=== PATIENT | female | born 1995 | race Caucasian/White ===

== ENCOUNTER 2016-12-16 18:09 | Emergency (ER) | payer OTHER ==
[~2016-12-16] VITALS: Ht 154.9 cm; Wt 66.7 kg
[~2016-12-16 18:09] MED LIST: IRON65TA3 PO; PREN-385 PO
[2016-12-16 18:42] VITALS: BP 107/60
[2016-12-16] MEDS ORDERED: ACETAMINOPHEN 650 MG/20.3 ML UDC ONE (18:56)
[2016-12-16] MEDS ORDERED: ACETAMINOPHEN 325 MG TAB ONE (18:59)
[2016-12-16] MEDS ORDERED: KETOROLAC 30 MG/ML VIAL IM ONE (20:30)
[2016-12-16 21:29] LABS: APPEARANCE,URINE CLEAR (CLEAR); BILIRUBIN,URINE NEGATIVE (NEGATIVE); BLOOD, URINE NEGATIVE (NEGATIVE); COLOR,URINE YELLOW (YELLOW); LEUKOCYTE ESTERASE ,URINE 1+ (NEGATIVE); NITRITE, URINE NEGATIVE (NEGATIVE); PH,URINE 6.5 (5.0-9.0); PROTEIN,URINE NEGATIVE (NEGATIVE); UGLUCOSE NEGATIVE (NEGATIVE); UROBILINOGEN,URINE 0.2 EU/dL (0.2 - 1)
[2016-12-16 21:33] LABS: BACTERIA,URINE 1+ /HPF (None Seen); RBC,URINE 0-3 /HPF (0-5)
[2016-12-16 21:55] VITALS: BP 110/65
== END 2016-12-16 21:55 | disposition home or self-care (01) ==
LOC: MED 18:09
DX: R51 Headache (principal); N39.0 Urinary tract infection, site not specified; J45.909 Unspecified asthma, uncomplicated
CPT/HCPCS: 81001; 81025; 87086; 99284; J1885

== ENCOUNTER 2017-05-10 18:38 | Emergency (ER) | payer OTHER ==
[~2017-05-10] VITALS: Ht 154.9 cm; Wt 64.4 kg
[~2017-05-10 18:38] MED LIST changes: +FERR-212 PO; -IRON65TA3 PO
[2017-05-10 20:05] VITALS: BP 112/75
--- NOTE | 2017-05-10 21:20 | NUR ---
21 Y/O F W/C/O RT ANKLE PAIN S/P FALLING OUT OF CAR THIS AM, STATES "I TWISTED MY ANKLE", MINIMAL EDEMA, LANDED ON LT ARM, DENIES PAIN ON LT ARM, DENIES HEAD INJURY/LOC PMH: ASTHMA, RT ANKLE FX 2 YRS AGO, RX: ALBUTEROL INH.
--- NOTE | 2017-05-10 21:34 | NUR ---
PT TAKEN FOR X-RAY.
[2017-05-10 23:09] VITALS: BP 97/60
--- NOTE | 2017-05-10 23:09 | NUR ---
Patient discharged with v/s stable. Written and verbal after care instructions given and explained. Patient alert, oriented and verbalized understanding of instructions. Ambulatory ON CRUTCHES, with A steady gait. All questions addressed prior to discharge. ID band removed. Patient advised to follow up with PMD. Rx of IBUPROFEN given. Patient educated on indication of medication including possible reaction and side effects. Opportunity to ask questions provided and answered.
== END 2017-05-10 23:09 | disposition home or self-care (01) ==
LOC: MED 18:38
DX: S93.401A Sprain of unspecified ligament of right ankle, initial encounter (principal); J45.909 Unspecified asthma, uncomplicated; W18.30XA Fall on same level, unspecified, initial encounter; Y93.89 Activity, other specified; Y92.89 Other specified places as the place of occurrence of the external cause; Y99.8 Other external cause status
CPT/HCPCS: 29515; 73610; 81025; 99284

== ENCOUNTER 2017-12-25 19:55 | Emergency (ER) | payer OTHER ==
[~2017-12-25] VITALS: Ht 154.9 cm; Wt 71.3 kg
--- NOTE | 2017-12-25 20:02 | NUR ---
CALLED PT FOR TRIAGE, NO RESPONSE
--- NOTE | 2017-12-25 20:04 | NUR ---
CALLED PT FOR TRIAGE, NOT IN LOBBY OR OUTSIDE OF ER LOBBY DOOR
[2017-12-25 20:14] VITALS: BP 103/75
--- NOTE | 2017-12-25 20:18 | NUR ---
PT RETURNED FOR TRIAGE AFTER GOING TO GET SOME FOOD. PT RETURNED TO LOBBY IN STABLE CONDITION. URINE SAMPLE COLLECTED.
--- NOTE | 2017-12-25 21:15 | NUR ---
PATIENT TO ER BED 7.
--- NOTE | 2017-12-25 21:20 | NUR ---
PATIENT IS A 22 Y/O FEMALE WHO PRESENTS TO THE ED C/O ABD PAIN. PT STATES THAT SHE IS X9 WEEKS ; ; REPORTS 7/10 ACHING ABD PAIN THAT DOES NOT RADIATE. PT DENIES CP, SOB, N/V/D, REPORTS DIZZINESS. PT AWAKE AND ALERT, RR EVEN/UNLABORED. PT REPOSITIONED FOR COMFORT, BED IN LOWEST POSITION. ER MD DR. OTT NOTIFIED. WILL CONTINUE TO MONITOR.
--- NOTE | 2017-12-25 21:25 | NUR ---
PATIENT TAKEN TO US VIA WHEELCHAIR WITH TECH.
[2017-12-25 21:30] LABS: BASOPHILS # (AUTO) 0.1 K/uL (0.00-0.22); BASOPHILS % (AUTO) 0.8 % (0.0-2.0); EOSINOPHILS # (AUTO) 0.4 K/uL (0-0.4); EOSINOPHILS % (AUTO) 3.3 % (0.0-4.0); HEMOGLOBIN 14.2 g/dL (12.0-16.0); LYMPHOCYTES # (AUTO) 2.6 K/uL (2.5-16.5); LYMPHOCYTES % (AUTO) 23.5 % (20.5-51.1); MEAN CORPUSCULAR HEMOGLOBIN 29 pg (27-31); MEAN CORPUSCULAR HGB CONC 34 g/dL (33-37); MEAN CORPUSCULAR VOLUME 86.7 fL (80-94); MONOCYTES # (AUTO) 1.1 K/uL (0.8-1.0); MONOCYTES % (AUTO) 9.9 % (1.7-9.3); NEUTROPHILS # (AUTO) 6.9 K/uL (1.8-7.7); NEUTROPHILS % (AUTO) 62.5 % (42.2-75.2); PLATELET COUNT (AUTO) 214 K/uL (140-450); RED BLOOD CELL COUNT(AUTO) 4.84 MIL/uL (4.20-5.40); RED CELL DISTRIBUTION WIDTH 13.1 % (11.6-13.7); WHITE BLOOD COUNT (AUTO) 11.1 K/uL (4.8-10.8)
[2017-12-25 21:33] LABS: APPEARANCE,URINE CLEAR (CLEAR); BILIRUBIN,URINE NEGATIVE (NEGATIVE); BLOOD, URINE NEGATIVE (NEGATIVE); COLOR,URINE YELLOW (YELLOW); LEUKOCYTE ESTERASE ,URINE 2+ (NEGATIVE); NITRITE, URINE NEGATIVE (NEGATIVE); UGLUCOSE NEGATIVE (NEGATIVE)
--- NOTE | 2017-12-25 21:42 | NUR ---
PATIENT RETURN FROM US.
[2017-12-25 21:46] LABS: RBC,URINE 0-5 (RARE) /HPF (0-5)
[2017-12-25 23:00] VITALS: BP 107/79
--- NOTE | 2017-12-25 23:00 | NUR ---
Patient discharged with v/s stable. Written and verbal after care instructions given and explained. Patient alert, oriented and verbalized understanding of instructions. Ambulatory with steady gait. All questions addressed prior to discharge. ID band removed. Patient advised to follow up with PMD. Rx of [employer] AND MACROBID given. Patient educated on indication of medication including possible reaction and side effects. Opportunity to ask questions provided and answered.
== END 2017-12-25 21:15 | disposition home or self-care (01) ==
LOC: MED 19:55
DX: O20.0 Threatened abortion (principal); O23.41 Unspecified infection of urinary tract in pregnancy, first trimester; J45.909 Unspecified asthma, uncomplicated; Z79.899 Other long term (current) drug therapy; Z3A.09 9 weeks gestation of pregnancy
CPT/HCPCS: 36415; 76801; 81001; 81025; 84702; 85025; 86900; 86901; 87086; 99285

== ENCOUNTER 2018-03-28 15:44 | Emergency (ER) | payer OTHER ==
[~2018-03-28] VITALS: Ht 154.9 cm; Wt 68.0 kg
[2018-03-28 16:12] VITALS: BP 120/63
--- NOTE | 2018-03-28 17:00 | NUR ---
PATIENT PRESENTS TO ED WITH THE CHIEF C/O COLD SYMPTOMS: COLD, HEADACHE, RUNNY NOSE, EARACHE. PT STATES SYMPTOMS STARTED 2 DAYS AGO. PT IS 23 WEEKS . AND IS NAUSATED LITTLE. DENIES V/D AT THIS TIME. SKIN IS PINK/WARM/DRY; AAOX4 WITH EVEN AND STEADY GAIT; LUNGS CLEAR BL; HR EVEN AND REGULAR; PT DENIES ANY FEVER, CP, OR COUGH AT THIS TIME. HAS COUGH AND DIFFICULTY BREATHING AT THIS TIME. SATURATING 97% IN ROOM AIR. PATIENT STATES HEADACHE OF 4/10 AT THIS TIME. KEPT PT ON MONITOR. VSS; PATIENT POSITIONED FOR COMFORT; HOB ELEVATED; BEDRAILS UP X2; BED DOWN. ER MD MADE AWARE OF PT STATUS.
[2018-03-28 17:56] VITALS: BP 123/66
--- NOTE | 2018-03-28 17:57 | NUR ---
Patient discharged with v/s stable. Written and verbal after care instructions given and explained. Patient alert, oriented and verbalized understanding of instructions. Ambulatory with steady gait. All questions addressed prior to discharge. ID band removed. Patient advised to follow up with PMD. Rx of zyrtec and tylenol given. Patient educated on indication of medication including possible reaction and side effects. Opportunity to ask questions provided and answered.
== END 2018-03-28 17:56 | disposition home or self-care (01) ==
LOC: MED 15:44
DX: O98.812 Other maternal infectious and parasitic diseases complicating pregnancy, second trimester (principal); J06.9 Acute upper respiratory infection, unspecified; J45.909 Unspecified asthma, uncomplicated; Z79.899 Other long term (current) drug therapy; Z3A.23 23 weeks gestation of pregnancy
CPT/HCPCS: 99283

== ENCOUNTER 2018-09-04 06:57 | Emergency (ER) | payer OTHER ==
[~2018-09-04] VITALS: Ht 154.9 cm; Wt 74.4 kg
[2018-09-04 07:02] VITALS: BP 103/60
--- NOTE | 2018-09-04 07:10 | NUR ---
PT AMBULATED TO BED #11
--- NOTE | 2018-09-04 07:13 | NUR ---
C/O SOB X 1 DAY, PT HAS HX OF ASTHMA AND LOST HER INHALER. AUDIBLE WHEEZES ON EXPIRATION TO RUL/RML. BREATHING IS UNLABORED, NO ACCESORY MUSCLE USE, O2 SAT 98% RA. PT DENIES N/V/D; SKIN IS INTACT, PINK/WARM/DRY; AAOX4 WITH EVEN AND STEADY GAIT; HR EVEN AND REGULAR, VSS; PATIENT POSITIONED FOR COMFORT; HOB ELEVATED; BEDRAILS UP X1; BED DOWN.
--- NOTE | 2018-09-04 07:14 | NUR ---
DR. MACHADO AT BEDSIDE
[2018-09-04] MEDS ORDERED: ALBUTEROL 0.083% 2.5 MG/3 ML NEBU INH ONE (07:15)
[2018-09-04] MEDS ORDERED: IPRATROPIUM 0.02% 0.5 MG/2.5 ML NEBU INH ONE (07:15)
[2018-09-04] MEDS ORDERED: predniSONE 20 MG TAB PO ONE (07:15)
[2018-09-04 08:32] VITALS: BP 108/62
--- NOTE | 2018-09-04 08:32 | NUR ---
Patient discharged with v/s stable. Written and verbal after care instructions given and explained. Patient alert, oriented and verbalized understanding of instructions. Ambulatory with steady gait. All questions addressed prior to discharge. ID band removed. Patient advised to follow up with PMD. Rx of PREDNISONE,CLARITIN,HHN given. Patient educated on indication of medication including possible reaction and side effects. Opportunity to ask questions provided and answered.
== END 2018-09-04 08:32 | disposition home or self-care (01) ==
LOC: MED 06:57
DX: J45.901 Unspecified asthma with (acute) exacerbation (principal); Z79.899 Other long term (current) drug therapy
CPT/HCPCS: 94640; 99283; J7512; J7613; J7644

== ENCOUNTER 2019-01-14 04:03 | Emergency (ER) | payer MEDICAID, OTHER ==
[~2019-01-14] VITALS: Ht 154.9 cm; Wt 65.8 kg
[2019-01-14 04:14] VITALS: BP 109/74
--- NOTE | 2019-01-14 04:16 | NUR ---
PT AMBULATED TO LOBBY.
--- NOTE | 2019-01-14 04:40 | NUR ---
PT AMBULATED TO CHAIR C.
[2019-01-14] MEDS ORDERED: ACETAMINOPHEN 325 MG TAB PO ONE (04:55)
[2019-01-14] MEDS ORDERED: PENICILLIN V POTASSIUM 250 MG TAB PO ONE (04:55)
--- NOTE | 2019-01-14 05:10 | NUR ---
CAME IN WITH COMPLAINED OF PAIN ON HER WISDOM TOOTH FOR 2 DAYS. SHES POSITIVE FOR URINE , KEESHA TALKED TO HER
[2019-01-14 05:35] VITALS: BP 113/78
--- NOTE | 2019-01-14 05:35 | NUR ---
Patient discharged with v/s stable. Written and verbal after care instructions given and explained. Patient alert, oriented and verbalized understanding of instructions. Ambulatory with steady gait. All questions addressed prior to discharge. ID band removed. Patient advised to follow up with PMD. Rx of PENICILLIN VK 325 MG given. Patient educated on indication of medication including possible reaction and side effects. Opportunity to ask questions provided and answered.
== END 2019-01-14 05:35 | disposition home or self-care (01) ==
LOC: MED 04:03
DX: K04.7 Periapical abscess without sinus (principal); J45.909 Unspecified asthma, uncomplicated; Z79.899 Other long term (current) drug therapy
CPT/HCPCS: 81025; 99283

== ENCOUNTER 2019-04-20 19:49 | Emergency (ER) | payer SELFPAY ==
[~2019-04-20] VITALS: Ht 154.9 cm; Wt 69.1 kg
[2019-04-20 19:58] VITALS: BP 122/71
--- NOTE | 2019-04-20 20:14 | NUR ---
23 Y/O FEMALE C/O 12/16 MIDDLE/LOWER BACK PAIN RADIATING INTO ABD X 3 DAYS. ALSO REPORTS PAINFUL URINATION. PT STATES SHE FOUND OUT SHE WAS X 1 MONTH AGO. NO CARE. STATES, " I WANT AN BUT CANNOT AFFORD IT". IS LIVING WITH FRIENDS. LMP . PT ALSO REPORTS BLEEDING WHILE GOING TO THE BATHROOM BUT DOES NOT KNOW IF IT IS VAGINAL OR FROM HER URINE. PAIN UPON PALPATION IN THE RIGHT FLANK RADIATING TO THE LOWER BACK. PT. STATES BURNING UPON URINATINERMD MADE AWARE OF STATUS PMH-- DENIES RX-- DENIES NKDA
--- NOTE | 2019-04-20 20:14 | NUR ---
AMBULATES TO BED 01 WITH SLOW GAIT BRACING BACK WITH HAND. FACIAL GRIMACING NOTED. Addendum: 04/20/19 at 2016 by [facility] BEDSIDE REPORT GIVEN TO AIDAN HAWLEY.
--- NOTE | 2019-04-20 20:14 | NUR ---
ERMD EVALUATING PATIENT AT BEDSIDE.
--- NOTE | 2019-04-20 20:43 | NUR ---
ULTRASOUND AT BEDSIDE.
[2019-04-20 21:07] LABS: APPEARANCE,URINE CLOUDY (CLEAR); BILIRUBIN,URINE NEGATIVE (NEGATIVE); BLOOD, URINE 2+ (NEGATIVE); COLOR,URINE YELLOW (YELLOW); LEUKOCYTE ESTERASE ,URINE 2+ (NEGATIVE); NITRITE, URINE NEGATIVE (NEGATIVE); UGLUCOSE NEGATIVE (NEGATIVE)
[2019-04-20 21:09] LABS: BASOPHILS # (AUTO) 0.1 K/uL (0.00-0.22); BASOPHILS % (AUTO) 0.5 % (0.0-2.0); EOSINOPHILS # (AUTO) 0.1 K/uL (0-0.4); EOSINOPHILS % (AUTO) 0.9 % (0.0-4.0); HEMATOCRIT 33.7 % (36-48); HEMOGLOBIN 11.3 g/dL (12.0-16.0); LYMPHOCYTES # (AUTO) 1.3 K/uL (2.5-16.5); LYMPHOCYTES % (AUTO) 10.9 % (20.5-51.1); MEAN CORPUSCULAR HEMOGLOBIN 29 pg (27-31); MEAN CORPUSCULAR HGB CONC 34 g/dL (33-37); MEAN CORPUSCULAR VOLUME 87.9 fL (80-94); MONOCYTES # (AUTO) 1.4 K/uL (0.8-1.0); MONOCYTES % (AUTO) 11.5 % (1.7-9.3); NEUTROPHILS # (AUTO) 9.2 K/uL (1.8-7.7); NEUTROPHILS % (AUTO) 76.2 % (42.2-75.2); PLATELET COUNT (AUTO) 184 K/uL (140-450); RED BLOOD CELL COUNT(AUTO) 3.84 MIL/uL (4.20-5.40); RED CELL DISTRIBUTION WIDTH 13.8 % (11.6-13.7)
[2019-04-20 21:34] LABS: WBC,URINE 60-80 /HPF (0-5)
[2019-04-20 21:36] LABS: ANION GAP 14.1 (8-16); CARBON DIOXIDE 23.1 mmol/L (21-32); CREATININE 0.5 mg/dL (0.6-1.3); POTASSIUM 3.2 mmol/L (3.5-5.1)
--- NOTE | 2019-04-20 21:38 | NUR ---
PATIENT IS RESTING WITH EYES CLOSED IN BED. WILL CONTINUE TO MONITOR.
--- NOTE | 2019-04-20 22:25 | NUR ---
ERMD AT BEDSIDE.
[2019-04-20 22:33] VITALS: BP 112/64
== END 2019-04-20 22:33 | disposition home or self-care (01) ==
LOC: MED 19:49
DX: O23.42 Unspecified infection of urinary tract in pregnancy, second trimester (principal); J45.909 Unspecified asthma, uncomplicated; Z79.899 Other long term (current) drug therapy; Z3A.21 21 weeks gestation of pregnancy
CPT/HCPCS: 36415; 76805; 80048; 81001; 81025; 84702; 85025; 86900; 86901; 87086; 87186; 99284; Q0092

== ENCOUNTER 2022-05-09 17:16 | Emergency (ER) | payer OTHER ==
[~2022-05-09] VITALS: Ht 154.9 cm; Wt 56.7 kg
[2022-05-09 17:22] VITALS: BP 108/76
[2022-05-09] MEDS ORDERED: ALBUTEROL SULFATE/IPRATROPIU 3 ML SOL IH ONE (17:30)
[2022-05-09] MEDS ORDERED: PRED20TA5 PO (17:33)
[2022-05-09] MEDS ORDERED: ALBU0.0912 IH (17:34)
[2022-05-09] MEDS ORDERED: predniSONE 20 MG TAB PO ONE (17:35)
--- NOTE | 2022-05-09 17:47 | NUR ---
[facility] THERAPY AND RESPIRATORY DRUG GIVEN ORDERED ENCOURAGED PATIENT FOR INTERMITTENT DEEP BREATHING DURING THERAPY
== END 2022-05-09 18:26 | disposition home or self-care (01) ==
LOC: MED 17:16
DX: J45.901 Unspecified asthma with (acute) exacerbation (principal); Z20.822 Contact with and (suspected) exposure to COVID-19
CPT/HCPCS: 87426; 87804; 94640; 94760; 99283; J7512

== ENCOUNTER 2022-07-31 01:16 | Emergency (ER) | payer OTHER ==
[~2022-07-31 01:16] MED LIST changes: +ALBU0.0912 IH; +PRED20TA5 PO
--- NOTE | 2022-07-31 01:20 | NUR ---
PATIENT CALL TO BE TRIAGE, NO RESPONSE PATIENT LEFT WITHOUT BEING SEEN BY DR. PARKER. NO FURTHER CARE PROVIDED FOR PATIENT.
--- NOTE | 2022-07-31 01:30 | NUR ---
CALLED FOR THE SECOND TIME. NO RESPONSE
--- NOTE | 2022-07-31 01:35 | NUR ---
CALLED FOR THE THIRD TIME NO RESPONSE
== END 2022-07-31 01:20 | disposition left against medical advice (07) ==
LOC: MED 01:16
DX: J45.909 Unspecified asthma, uncomplicated (principal); Z53.21 Procedure and treatment not carried out due to patient leaving prior to being seen by health care provider

== ENCOUNTER 2023-07-02 06:01 | Emergency (ER) | payer OTHER ==
[~2023-07-02] VITALS: Ht 154.9 cm; Wt 77.1 kg
[2023-07-02 06:19] VITALS: BP 104/63; PULSE 75; RESP 18; TEMP 98; O2SAT 98
[2023-07-02] MEDS: predniSONE 20 MG TAB PO ONE (07:20)
[2023-07-02] MEDS: ALBUTEROL SULFATE/IPRATROPIU 3 ML SOL IH ONE (07:23)
[2023-07-02 07:26] VITALS: PULSE 78; RESP 18; O2SAT 99
[2023-07-02] MEDS ORDERED: CICL160A INH (08:18)
[2023-07-02] MEDS ORDERED: METH4TAB1 PO (08:18)
[2023-07-02] MEDS ORDERED: ALBU0.0912 INH (08:18)
== END 2023-07-02 08:31 | disposition home or self-care (01) ==
LOC: MED 06:01
DX: J45.901 Unspecified asthma with (acute) exacerbation (principal); Z79.899 Other long term (current) drug therapy
CPT/HCPCS: 99283; J7030; J7512; 94640

== ENCOUNTER 2024-03-04 13:16 | Emergency (ER) | payer OTHER ==
[~2024-03-04] VITALS: Ht 154.9 cm; Wt 68.0 kg
[~2024-03-04 13:16] MED LIST changes: +ALBU0.0912 INH; +CICL160A INH; +METH4TAB1 PO
[2024-03-04 13:26] VITALS: BP 122/80; PULSE 83; RESP 16; TEMP 97.4; O2SAT 99
[2024-03-04] MEDS ORDERED: IBUP-2213 PO (13:42)
[2024-03-04] MEDS ORDERED: CYCL-711 PO (13:42)
[2024-03-04 13:50] VITALS: BP 122/80; PULSE 83; RESP 16; TEMP 97.4; O2SAT 99
== END 2024-03-04 13:50 | disposition home or self-care (01) ==
LOC: MED 13:16
DX: S16.1XXA Strain of muscle, fascia and tendon at neck level, initial encounter (principal); J45.909 Unspecified asthma, uncomplicated; Z79.899 Other long term (current) drug therapy; W22.8XXA Striking against or struck by other objects, initial encounter; Y93.89 Activity, other specified; Y92.89 Other specified places as the place of occurrence of the external cause; Y99.8 Other external cause status
CPT/HCPCS: 99283